=== PATIENT | female | born 1980 | race American Indian/Alaskan Native ===

== ENCOUNTER 2018-06-19 10:16 | Emergency (ER) | payer BC, OTHER ==
[2018-06-19 10:17] VITALS: BMI 27.3
[2018-06-19 10:40] VITALS: PULSE 78; TEMP 98; O2SAT 98
--- NOTE | 2018-06-19 11:35 | ED PDOC ---
HPI: Abdomen Time Seen by Provider: 06/19/18 10:27 Chief Complaint (Nursing): Abdominal Pain Chief Complaint (Provider): Abdominal pain History Per: Patient Additional Complaint(s): 37 yo female, no PMH, presents to ED with complaints of abdominal pain x 10 days. Pt reports breast tenderness as well. Pt notes that her LMP was in April; however,she took 2 tests at home and both were negative, last of whch was last week. Pt is . 1 spontaneous AB, the other was an ectopic- no surgical intervention required. denies any nausea or vomiting. denies any fever, no UTI like complaints Past Medical History Reviewed: Nursing Documentation, Vital Signs Vital Signs: Last Vital Signs Temp 98 F 06/19/18 10:34 Pulse 78 06/19/18 10:34 Resp 20 06/19/18 10:34 BP 155/93 H 06/19/18 10:34 Pulse Ox 98 06/19/18 10:34 - Medical History PMH: HTN, Migraine Denies: Depression, Chronic Kidney Disease - Surgical History Surgical History: No Surg Hx - Family History Family History: States: No Known Family Hx - Living Arrangements Living Arrangements: With Family - Social History Current smoker - smoking cessation education provided: No Alcohol: None Drugs: Denies - Home Medications Home Medications: Ambulatory Orders Medication Instructions Recorded Olmesartan/Hydrochlorothiazide 1 tab PO DAILY 01/07/15 [Benicar Hct 12.5 mg-40 mg] Cephalexin [cephalexin] 500 mg PO BID #14 cap 06/19/18 No115/Iron/Folic Acid 1 each PO DAILY #30 tab.chew 06/19/18 [ 19 Chewable Tablet] - Allergies Allergies/Adverse Reactions: Allergies Allergy/AdvReac Type Severity Reaction Status Date / Time No Known Allergies Allergy Verified 06/19/18 10:34 Review of Systems ROS Statement: Except As Marked, All Systems Reviewed And Found Negative Gastrointestinal: Positive for: Abdominal Pain Genitourinary Female: Negative for: Hematuria, Vaginal Discharge, Vaginal Bleeding Physical Exam - Reviewed Nursing Documentation Reviewed: Yes Vital Signs Reviewed: Yes - Physical Exam Appears: Positive for: Well, Non-toxic, No Acute Distress Head Exam: Positive for: ATRAUMATIC, NORMAL INSPECTION, NORMOCEPHALIC Skin: Positive for: Normal Color, Warm, DRY Eye Exam: Positive for: EOMI, Normal appearance, PERRL ENT: Positive for: Normal ENT Inspection Neck: Positive for: Normal, Painless ROM Cardiovascular/Chest: Positive for: Regular Rate, Rhythm Respiratory: Positive for: CNT, Normal Breath Sounds Gastrointestinal/Abdominal: Positive for: Soft, Tenderness (suprapubic). Negative for: Distended, Guarding Back: Positive for: Normal Inspection Extremity: Positive for: Normal ROM Neurologic/Psych: Positive for: Alert, Oriented - Laboratory Results Result Diagrams: 06/19/18 11:50 06/19/18 11:00 - ECG O2 Sat by Pulse Oximetry: 98 Medical Decision Making Medical Decision Making: Beta: 1199 Blood Type O+ CBC adn COMP WNL UA: Nitraite and Leuk (+) IV Rocephin started US IMPRESSION: No definite ultrasound of intrauterine gestational sac or intrauterine gestation. There is a tiny 3 millimeter hypoechoic cystic structure within the endometrial complex which is thickened measuring 25 millimeters. It is uncertain as to whether this could reflect a very early gestational sac. Correlation with patient's beta HCG laboratory values would be suggested. No evidence of adnexal mass. Small amount of nonspecific fluid in the cul-de-sac. If the beta HCG laboratory value is higher than expected, an ectopic cannot be excluded. Pt educated on all results and demonstrated full understanding. Pt feeling well on re-eval, reports pain is improved. Pt scheduled to see her OB next week, advised to call on Wednesday Return to ED if at anytime condition worsens Disposition - Clinical Impression Clinical Impression: Urinary tract infection, Abdominal pain during - Patient ED Disposition Is Patient to be Admitted: No - Disposition Disposition: Routine/Home Disposition Time: 14:10 Condition: STABLE Prescriptions: Cephalexin [cephalexin] 500 mg PO BID #14 cap No115/Iron/Folic Acid [ 19 Chewable Tablet] 1 each PO DAILY #30 tab.chew Instructions: Urinary Tract Infections in Adults Forms: [facility] (Citizen [place])
[2018-06-19 12:20] LABS: BASO % 0.7 % (0.0-2.0); EOS # 0.1 K/uL (0.0-0.7); EOS % 0.9 % (0.0-4.0); LYMPH # 2.7 K/uL (1.0-4.3); LYMPH % 40.3 % (20.0-40.0); MEAN CELL VOLUME 94.3 fl (81.0-99.0); MEAN CORPUSCULAR HEMOGLOBIN 31.7 pg (27.0-31.0); MEAN CORPUSCULAR HGB CONC 33.6 g/dL (33.0-37.0); MEAN PLATELET VOLUME 8.8 fl (7.2-11.7); MONO # 0.6 K/uL (0.0-0.8); MONO % 9.2 % (0.0-10.0); NEUT # 3.3 K/uL (1.8-7.0); NEUT % 48.9 % (50.0-75.0); NRBC % 0.1 % (0.0-0.0); RBC 4.12 Mil/uL (3.80-5.20); RED CELL DISTRIBUTION WIDTH 13.1 % (11.5-14.5); WHITE BLOOD COUNT 6.8 K/uL (4.8-10.8)
[2018-06-19 12:24] LABS: SQUAMOUS EPITHIAL 4 /hpf (0-5); URINE BACTERIA MOD (<OCC); URINE BILIRUBIN NEGATIVE (NEGATIVE); URINE BLOOD NEGATIVE (NEGATIVE); URINE CLARITY CLOUDY (Clear); URINE COLOR YELLOW (YELLOW); URINE GLUCOSE (UA) NEG (Normal); URINE LEUKOCYTE ESTERASE SMALL Leu/uL (Negative); URINE PROTEIN NEGATIVE (NEGATIVE); URINE UROBILINOGEN 0.2-1.0 mg/dL (0.2-1.0)
[2018-06-19 12:27] LABS: ALB/GLOB RATIO 1.1 (1.0-2.1); ALBUMIN 4.2 g/dL (3.5-5.0); ALT/SGPT 21 U/L (9-52); AST/SGOT 22 U/L (14-36); BLOOD UREA NITROGEN 9 mg/dl (7-17); CALCIUM 9.7 mg/dL (8.4-10.2); GFR NON-AFRICAN AMERICAN > 60; LIPASE 64 U/L (23-300)
--- NOTE | 2018-06-19 13:45 | US ---
Date of service: 06/19/2018 HISTORY: preg, pain- hx of ectopic COMPARISON: None available. TECHNIQUE: Real-time transvaginal ultrasound examination of the pelvis was performed. FINDINGS: UTERUS: Measures 9.2 x 4.8 x 6.2 cm. No focal fibroid was noted. There is a tiny hypoechoic cystic structure measuring under 3 millimeters within the endometrial canal. This is too small to adequately characterize. No pole or yolk sac is seen. ENDOMETRIUM: Measures 25 mm in diameter. Mild heterogeneity is noted. No significant fluid is seen in the endometrial canal. CERVIX: No cervical abnormality identified. RIGHT OVARY: Measures 4.4 x 2.5 x 4 cm. No solid mass. Normal flow. LEFT OVARY: Measures 2.4 x 2.1 x 2 cm. No solid mass. Normal flow. FREE FLUID: Nonspecific small amount of hypoechoic fluid is noted in the cul-de-sac. A few probable tiny nabothian cysts are not excluded. OTHER FINDINGS: None. IMPRESSION: No definite ultrasound of intrauterine gestational sac or intrauterine gestation. There is a tiny 3 millimeter hypoechoic cystic structure within the endometrial complex which is thickened measuring 25 millimeters. It is uncertain as to whether this could reflect a very early gestational sac. Correlation with patient's beta HCG laboratory values would be suggested. No evidence of adnexal mass. Small amount of nonspecific fluid in the cul-de-sac. If the beta HCG laboratory value is higher than expected, an ectopic cannot be excluded.
[2018-06-19] MEDS ORDERED: cefTRIAXone (Rocephin) 1 gm Inj ONE (13:46)
[2018-06-19 15:49] VITALS: BP 136/91; RESP 16
== END 2018-06-19 15:45 | disposition home or self-care (01) ==
LOC: H.ER 10:16
DX: N39.0 Urinary tract infection, site not specified (principal); O26.91 Pregnancy related conditions, unspecified, first trimester; I10 Essential (primary) hypertension; R10.2 Pelvic and perineal pain
CPT/HCPCS: 76817; 80053; 81003; 81025; 82150; 83690; 84702; 85025; 86850; 86900; 96365; 99283; J0696; J2270

== ENCOUNTER 2018-06-28 00:07 | Emergency (ER) | payer BC ==
[2018-06-28 00:17] VITALS: BMI 26.1
[2018-06-28 00:35] VITALS: BP 136/91; PULSE 82; RESP 18; TEMP 98.3; O2SAT 98
[2018-06-28] MEDS ORDERED: Sodium Chloride 0.9% 1,000 ML IV STA (01:07)
--- NOTE | 2018-06-28 01:10 | ED PDOC ---
HPI: Abdomen Time Seen by Provider: 06/28/18 01:00 Chief Complaint (Nursing): Abdominal Pain Chief Complaint (Provider): lower abdominal pain History Per: Patient History/Exam Limitations: no limitations Onset/Duration Of Symptoms: Days (1) Current Symptoms Are (Timing): Still Present Location Of Pain/Discomfort: LLQ, Suprapubic, Other (left flank) Associated Symptoms: denies: Fever, Chills, Nausea, Vomiting, Diarrhea Additional Complaint(s): 37 y/o female, approximately 4 weeks gestation, presents for evaluation of left lower abdominal pain x 1 day. States pain radiates to left lower back. Patient states she also noticed blood on tissue when wiping. Denies fever, nausea/vomiting, chest pain, shortness of breath, palpitations, dysuria, vaginal discharge. Patient states she was here a little over one week ago and finished a course of Keflex for a UTI yesterday. Patient states her last ultrasound was one week ago at her Reports Analysis Manager's office and it did not show anything likely due to early Last Menstral Period: 05/27/18 : 3 Para: 0 Miscarriage: 2 Past Medical History Reviewed: Historical Data, Nursing Documentation, Vital Signs Vital Signs: Last Vital Signs Temp 98.3 F 06/28/18 00:21 Pulse 82 06/28/18 00:21 Resp 18 06/28/18 00:21 BP 136/91 H 06/28/18 00:21 Pulse Ox 98 06/28/18 00:21 - Medical History PMH: HTN, Migraine Denies: Depression, Chronic Kidney Disease - Surgical History Surgical History: No Surg Hx - Family History Family History: States: No Known Family Hx - Living Arrangements Living Arrangements: With Family - Home Medications Home Medications: Ambulatory Orders Medication Instructions Recorded Olmesartan/Hydrochlorothiazide 1 tab PO DAILY 01/07/15 [Benicar Hct 12.5 mg-40 mg] Cephalexin [cephalexin] 500 mg PO BID #14 cap 06/19/18 No115/Iron/Folic Acid 1 each PO DAILY #30 tab.chew 06/19/18 [ 19 Chewable Tablet] Cefpodoxime [Vantin] 200 mg PO Q12 #20 tab 06/28/18 - Allergies Allergies/Adverse Reactions: Allergies Allergy/AdvReac Type Severity Reaction Status Date / Time No Known Allergies Allergy Verified 06/19/18 10:34 Review of Systems ROS Statement: Except As Marked, All Systems Reviewed And Found Negative Genitourinary Female: Positive for: Vaginal Bleeding, Pelvic Pain Physical Exam - Reviewed Nursing Documentation Reviewed: Yes Vital Signs Reviewed: Yes - Physical Exam Appears: Positive for: Well, Non-toxic, No Acute Distress Head Exam: Positive for: ATRAUMATIC, NORMAL INSPECTION, NORMOCEPHALIC Skin: Positive for: Normal Color Eye Exam: Positive for: Normal appearance ENT: Positive for: Normal ENT Inspection Cardiovascular/Chest: Positive for: Regular Rate, Rhythm Respiratory: Positive for: Normal Breath Sounds Gastrointestinal/Abdominal: Positive for: Bowel Sounds, Soft, Tenderness (llq, left flank) Pelvic Exam: Positive for: External Exam Normal, No Cerv. 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 Negative for: Active Bleeding, Discharge Back: Positive for: L CVA Tenderness. Negative for: R CVA Tenderness Extremity: Positive for: Normal ROM Neurologic/Psych: Positive for: Alert (age appropriate) - Laboratory Results Result Diagrams: 06/28/18 01:30 06/28/18 01:30 - ECG O2 Sat by Pulse Oximetry: 98 - Progress ED Course And Treament: labs, urine, renal u/s, OB TV u/s OB TV u/s USAradimpression: single intrauterine gestational sac. No pole is identified. Unremarkable cervix renal u/s USArad impression: unremarkable kidneys and bladder as visualized Case discussed with Dr. Love, Reports Analysis Manager on-call: who does not feel patient needs admission at this time as no fever, leukocytosis, or toxic-appearing. Advised changing outpatient antibiotics and f/up with private Reports Analysis Manager IV rocephin dose given in ED Patient educated on findings, discharged with rx Cefpodoxime Advised follow up with Reports Analysis Manager today Return precautions given Disposition - Clinical Impression Clinical Impression: Abdominal pain during , Urinary tract infection - Patient ED Disposition Is Patient to be Admitted: No Counseled Patient/Family Regarding: Studies Performed, Diagnosis, Need For Followup, Rx Given - Disposition Disposition: Routine/Home Disposition Time: 05:28 Condition: IMPROVED Additional Instructions: Follow up with your Reports Analysis Manager TODAY Take medication as instructed Return to ED for worsening/concerning symptoms Prescriptions: Cefpodoxime [Vantin] 200 mg PO Q12 #20 tab Instructions: Urinary Tract Infections in Adults, Round Ligament Pain Forms: [facility] ([place]), [facility] ED School/Work Excuse
[2018-06-28 01:33] LABS: BASO # 0.1 K/uL (0.0-0.2); BASO % 0.9 % (0.0-2.0); EOS # 0.1 K/uL (0.0-0.7); EOS % 0.8 % (0.0-4.0); HEMOGLOBIN 12.4 g/dL (12.0-16.0); LYMPH # 3.5 K/uL (1.0-4.3); LYMPH % 43.9 % (20.0-40.0); MEAN CELL VOLUME 93.9 fl (81.0-99.0); MEAN CORPUSCULAR HEMOGLOBIN 31.9 pg (27.0-31.0); MEAN PLATELET VOLUME 8.7 fl (7.2-11.7); MONO # 0.7 K/uL (0.0-0.8); MONO % 8.7 % (0.0-10.0); NEUT # 3.6 K/uL (1.8-7.0); NEUT % 45.7 % (50.0-75.0); NRBC % 0.1 % (0.0-0.0); RBC 3.9 Mil/uL (3.80-5.20); RED CELL DISTRIBUTION WIDTH 13.3 % (11.5-14.5); WHITE BLOOD COUNT 7.9 K/uL (4.8-10.8)
[2018-06-28 01:43] LABS: ALB/GLOB RATIO 1.1 (1.0-2.1); ALBUMIN 4.5 g/dL (3.5-5.0); ALT/SGPT 9 U/L (9-52); AST/SGOT 46 U/L (14-36); BLOOD UREA NITROGEN 11 mg/dl (7-17); CALCIUM 9.2 mg/dL (8.4-10.2); GFR NON-AFRICAN AMERICAN > 60
[2018-06-28 02:15] LABS: SQUAMOUS EPITHIAL < 1 /hpf (0-5); URINE BACTERIA RARE (<OCC); URINE BILIRUBIN NEGATIVE (NEGATIVE); URINE BLOOD SMALL (NEGATIVE); URINE CLARITY CLEAR (Clear); URINE COLOR COLORLESS (YELLOW); URINE GLUCOSE (UA) NEG (Normal); URINE LEUKOCYTE ESTERASE LARGE Leu/uL (Negative); URINE PROTEIN NEGATIVE (NEGATIVE); URINE UROBILINOGEN 0.2-1.0 mg/dL (0.2-1.0)
[2018-06-28] MEDS ORDERED: cefTRIAXone (Rocephin) 1 gm Inj ONE (05:16)
--- NOTE | 2018-06-28 13:38 | US ---
Date of service: 06/28/2018 PROCEDURE: OB Pelvic Ultrasound HISTORY: ; pain, spotting Beta HCG results: 60559.0 units. LMP 05/27/2018. COMPARISON: 06/19/2018 FINDINGS: UTERUS: Gestational sac: Single intrauterine gestation. No pole identified. Yolk sac identified. age (Ultrasound estimated): 5 weeks 2 days Pat-gestational hemorrhage: None. Date of delivery (Ultrasound estimated) : 03/03/2019 06/19/2018 Uterus measures 5.6 x 7 x 9.3 cm. Normal in size and appearance. CERVIX: Measures 3.68 cm. Long and closed. No cervical abnormality seen. RIGHT OVARY: Measures 2 x 2.3 x 3.9 cm. No mass lesion. Normal flow. LEFT OVARY: Measures 3.4 x 4.4 x 3.6 cm. No solid mass. Normal flow. Complex debris laden cyst 3.1 x 2.4 x 2.2 cm FREE FLUID: None. OTHER FINDINGS: None. IMPRESSION: Early intrauterine gestation. Gestational sac and yolk sac without pole identified. Concordant results (preliminary interpretation) provided by [facility]. Procedure Completed: 02:44. Preliminary Report: Dictated and Authenticated: 04:27. Final Interpretation: 13:34. June 28, 2018
--- NOTE | 2018-06-28 13:39 | US ---
Date of service: 06/28/2018 PROCEDURE: Ultrasound of the Kidneys HISTORY: left flank pain COMPARISON: None available. TECHNIQUE: Sonogram of the kidneys. FINDINGS: RIGHT KIDNEY: Measures: 4.8 x 3.9 x 11.8 cm. Normal in size, contour and echogenicity. No stone, solid mass lesion or hydronephrosis visualized. LEFT KIDNEY: Measures: 4.3 x 4.4 x 11.3 cm. Normal in size, contour and echogenicity. No stone, solid mass lesion or hydronephrosis visualized. OTHER FINDINGS: None. IMPRESSION: Unremarkable renal sonogram. Concordant findings (preliminary report) provided by JONI REIS.
== END 2018-06-28 06:10 | disposition home or self-care (01) ==
LOC: H.ER 00:07
DX: O23.40 Unspecified infection of urinary tract in pregnancy, unspecified trimester (principal)
CPT/HCPCS: 76770; 76815; 80053; 81003; 84702; 85025; 87086; 87181; 96374; 99283; J0696